=== PATIENT | female | born 1985 | race African-American/Black ===

== ENCOUNTER 2016-12-12 07:50 | Emergency (ER) | payer MEDICAID ==
[~2016-12-12] VITALS: Ht 157.5 cm; Wt 96.2 kg
[~2016-12-12 07:50] MED LIST: ALBUTEROL17 GM INH
[2016-12-12 08:42] LABS: URINE SOURCE CLEAN CATCH
[2016-12-12 08:44] LABS: URINE APPEARANCE CLEAR; URINE BILIRUBIN NEG (NEG); URINE BLOOD NEG (NEG); URINE COLOR YELLOW; URINE GLUCOSE NEG (NEG); URINE KETONE NEG (NEG); URINE LEUKOCYTE ESTERASE TRACE (NEG); URINE NITRATE NEG (NEG); URINE PROTEIN NEG (NEG); URINE SPECIFIC GRAVITY 1.021 (1.003-1.035)
[2016-12-12 08:47] LABS: CULTURE INDICATED? YES; URBCS1 AUWI 0-2 /[HPF] (0-2); URINE BACTERIA AUWI 1+ (NEGATIVE); URINE SQUAMOUS EPITHELIAL CELL MOD /[HPF]
[2016-12-14 00:31] LABS: CHLAMYDIA TRACH Not Detected (Not Detected); N GONOR Not Detected (Not Detected)
== END 2016-12-12 09:40 | disposition home or self-care (01) ==
LOC: CED 07:50 → CFTX 07:50
PROVIDERS: Nurse Practitioner
DX: N95.2 Postmenopausal atrophic vaginitis (principal); E28.2 Polycystic ovarian syndrome; Z98.890 Other specified postprocedural states
CPT/HCPCS: 81003; 84703; 87086; 87491; 87591; 87808; 87905; 99283